=== PATIENT | male | born 1975 | race American Indian/Alaskan Native ===

== ENCOUNTER 2017-09-18 15:58 | Emergency (ER) | payer MEDICARE, MEDICAID ==
[2017-09-18 16:44] LABS: Basophils % (Auto) 0.3 % (0.0-1.8); Hematocrit 49.9 % (35.5-45.6); Hemoglobin 16.8 gm/dl (11.8-15.2); Lymphocytes # (Auto) 1.2 K/mm3 (1.2-5.4); Lymphocytes % (Auto) 6.8 % (13.4-35.0); Mean Corpuscular HGB Conc 34 % (32-34); Mean Corpuscular Hemoglobin 29 pg (28-32); Mean Corpuscular Volume 87 fl (84-94); Monocytes # (Auto) 1.1 K/mm3 (0.0-0.8); Monocytes % (Auto) 5.8 % (0.0-7.3); Platelet Count 168 K/mm3 (140-440); Red Blood Count 5.73 M/mm3 (3.65-5.03); Red Cell Distribution Width 14.8 % (13.2-15.2)
[2017-09-18 17:05] LABS: Calcium 9.8 mg/dL (8.4-10.2)
[2017-09-18] MEDS ORDERED: NACL 0.9% 1000 ML 1,000 ML IV ONE ×3 (19:07→22:27)
[2017-09-18] MEDS ORDERED: NARCAN 0.4 MG/1 ML ONE (19:10)
[2017-09-18] MEDS ORDERED: NARCAN 0.4 MG/1 ML IV PRN (19:11)
--- NOTE | 2017-09-18 20:04 | Emergency Department Report ---
ED Psych HPI - General Chief Complaint: Psych Stated Complaint: MEDICAL CLEARENCE Time Seen by Provider: 09/18/17 18:38 Source: patient Mode of arrival: Ambulatory - History of Present Illness Initial Comments: Mr Keith is a 41 year-old man with hx of seizures and substance dependency who presents for medical clearance. Reports wanting to go inpatient for heroin treatment. last used this morning. Reports not sleeping for days, has been dehydrated. Vomited x 2 today, non-bloody, non-bilious. Normal stools. normal PO. normal urine without pain. No fever. No chest pain. had episode where he went missing from triage, now in room somnolent. denies using here. - Related Data Allergies Allergy/AdvReac Type Severity Reaction Status Date / Time ciprofloxacin [From Cipro] Allergy Unknown Verified 09/18/17 16:04 lidocaine Allergy Rash Verified 09/18/17 16:04 ED Review of Systems ROS: Stated complaint: MEDICAL CLEARENCE Other details as noted in HPI Comment: All other systems reviewed and negative ED Past Medical Hx - Past Medical History Previous Medical History?: Yes Hx Seizures: Yes Hx Kidney Stones: Yes Hx Psychiatric Treatment: Yes (pain pill addiction, heroin abuse, ETOH abuse) Additional medical history: anxiety - Surgical History Past Surgical History?: Yes Additional Surgical History: Left kidney surgery. Left arm surgery with instrumentation - Social History Smoking Status: Current Every Day Smoker Substance Use Type: Alcohol, Heroin, Tranquilizers ED Physical Exam - General Limitations: No Limitations General appearance: alert, in no apparent distress - Head Head exam: Present: atraumatic, normocephalic - Eye Eye exam: Present: normal appearance, PERRL, EOMI - ENT ENT exam: Present: normal exam, mucous membranes moist - Neck Neck exam: Present: normal inspection, full ROM. Absent: tenderness, meningismus - Respiratory Respiratory exam: Present: normal lung sounds bilaterally. Absent: respiratory distress, wheezes, rales - Cardiovascular Cardiovascular Exam: Present: regular rate, normal rhythm. Absent: systolic murmur, diastolic murmur, rubs, gallop - GI/Abdominal GI/Abdominal exam: Present: soft, normal bowel sounds. Absent: distended - Rectal Rectal exam: Present: deferred - Extremities Exam Extremities exam: Present: normal inspection - Back Exam Back exam: Present: normal inspection - Neurological Exam Neurological exam: Present: alert, oriented X3 - Psychiatric Psychiatric exam: Present: normal affect, normal mood - Skin Skin exam: Present: warm, dry, intact, normal color. Absent: rash ED Course Vital Signs 09/18/17 09/18/17 09/18/17 16:04 19:15 19:30 Temperature 99.3 F Pulse Rate 96 H 114 H 99 H Respiratory 18 20 15 Rate Blood Pressure 121/97 131/92 139/98 O2 Sat by Pulse 98 99 97 Oximetry 09/18/17 09/18/17 09/18/17 19:39 19:45 20:00 Temperature Pulse Rate 115 H 99 H Respiratory 16 15 12 Rate Blood Pressure 139/98 128/97 O2 Sat by Pulse 98 97 97 Oximetry 09/18/17 09/18/17 09/18/17 20:15 20:31 20:45 Temperature Pulse Rate 101 H 110 H 106 H Respiratory 15 19 20 Rate Blood Pressure 128/97 138/99 138/99 O2 Sat by Pulse 97 97 99 Oximetry 09/18/17 09/18/17 09/18/17 21:00 21:15 21:30 Temperature Pulse Rate 100 H 103 H 108 H Respiratory 19 9 L 16 Rate Blood Pressure 117/82 117/82 116/79 O2 Sat by Pulse 98 97 97 Oximetry 09/18/17 09/18/17 09/18/17 21:45 22:00 22:15 Temperature Pulse Rate 114 H 107 H 106 H Respiratory 14 17 17 Rate Blood Pressure 116/79 113/72 113/72 O2 Sat by Pulse 95 95 97 Oximetry 09/18/17 09/18/17 09/18/17 22:30 22:45 23:00 Temperature Pulse Rate 100 H 87 Respiratory 16 19 22 Rate Blood Pressure 111/77 111/77 118/81 O2 Sat by Pulse 97 100 100 Oximetry ED Medical Decision Making - Lab Data Result diagrams: 09/18/17 16:18 09/18/17 16:18 Lab Results 09/18/17 09/18/17 09/18/17 Range/Units 16:18 16:18 16:18 WBC (4.5-11.0) K/mm3 RBC (3.65-5.03) M/mm3 Hgb (11.8-15.2) gm/dl Hct (35.5-45.6) % MCV (84-94) fl MCH (28-32) pg MCHC (32-34) % RDW (13.2-15.2) % Plt Count (140-440) K/mm3 Lymph % (Auto) (13.4-35.0) % Dixie % (Auto) (0.0-7.3) % Eos % (Auto) (0.0-4.3) % Baso % (Auto) (0.0-1.8) % Lymph # (1.2-5.4) K/mm3 Dixie # (0.0-0.8) K/mm3 Eos # (0.0-0.4) K/mm3 Baso # (0.0-0.1) K/mm3 Seg Neutrophils % (40.0-70.0) % Seg Neutrophils # (1.8-7.7) K/mm3 Sodium 136 L (137-145) mmol/L Potassium 4.4 (3.6-5.0) mmol/L Chloride 92.7 L (98-107) mmol/L Carbon Dioxide 27 (22-30) mmol/L Anion Gap 21 mmol/L BUN 28 H (9-20) mg/dL Creatinine 1.4 (0.8-1.5) mg/dL Estimated GFR 56 ml/min BUN/Creatinine Ratio 20 % Glucose 129 H (75-100) mg/dL Calcium 9.8 (8.4-10.2) mg/dL Salicylates < 0.3 L (2.8-20.0) mg/dL Acetaminophen < 5.0 L (10.0-30.0) ug/mL Plasma/Serum Alcohol (0-0.07) % 09/18/17 09/18/17 Range/Units 16:18 16:18 WBC 18.2 H (4.5-11.0) K/mm3 RBC 5.73 H (3.65-5.03) M/mm3 Hgb 16.8 H (11.8-15.2) gm/dl Hct 49.9 H (35.5-45.6) % MCV 87 (84-94) fl MCH 29 (28-32) pg MCHC 34 (32-34) % RDW 14.8 (13.2-15.2) % Plt Count 168 (140-440) K/mm3 Lymph % (Auto) 6.8 L (13.4-35.0) % Dixie % (Auto) 5.8 (0.0-7.3) % Eos % (Auto) 0.0 (0.0-4.3) % Baso % (Auto) 0.3 (0.0-1.8) % Lymph # 1.2 (1.2-5.4) K/mm3 Dixie # 1.1 H (0.0-0.8) K/mm3 Eos # 0.0 (0.0-0.4) K/mm3 Baso # 0.0 (0.0-0.1) K/mm3 Seg Neutrophils % 87.1 H (40.0-70.0) % Seg Neutrophils # 15.9 H (1.8-7.7) K/mm3 Sodium (137-145) mmol/L Potassium (3.6-5.0) mmol/L Chloride (98-107) mmol/L Carbon Dioxide (22-30) mmol/L Anion Gap mmol/L BUN (9-20) mg/dL Creatinine (0.8-1.5) mg/dL Estimated GFR ml/min BUN/Creatinine Ratio % Glucose (75-100) mg/dL Calcium (8.4-10.2) mg/dL Salicylates (2.8-20.0) mg/dL Acetaminophen (10.0-30.0) ug/mL Plasma/Serum Alcohol < 0.01 (0-0.07) % - Medical Decision Making Mr Keith is a 41 year-old man with hx of heroin abuse who presents for medical clearance for detox. Somnolent in ED, RR drops to 6 when asleep. given 0.4mg narcan and has remained stable. Labs unremarkable. UDS amphetamine and opiate positive. Has been mildly tachycardic here, suspect amphetamines causing this. given 2L NS. HR now in 90s. Given GI cocktail and H2 crissy for abdominal discomfort, feels better now. Mild dehydration on labs. Given fluids. Normal Cr. Medically cleared to go to rehab. Taking PO, well appearing. DC. Critical care attestation.: If time is entered above; I have spent that time in minutes in the direct care of this critically ill patient, excluding procedure time. ED Disposition Clinical Impression: Medical clearance for psychiatric admission Disposition: [id number]/[id number] PSY HOSP/PSY UNIT Is pt being admited?: No Condition: Stable Instructions: Narcotic Abuse (ED), Methamphetamine Abuse (ED)
--- NOTE | 2017-09-18 20:29 | XRay Report ---
FINAL REPORT PROCEDURE: Chest. TECHNIQUE: Portable AP view. HISTORY: Cough. COMPARISON: No prior studies are available for comparison. FINDINGS: The heart and mediastinum appear normal. The lungs are clear and well expanded. There are no pleural effusions. The soft tissues are unremarkable. There is internal fixation hardware in the left humerus. IMPRESSION: No evidence of acute disease.
[2017-09-18 21:37] LABS: Bacteria,Urine 1+ /HPF (Negative); Bilirubin,Urine NEG (Negative); Blood,Urine SM (Negative); Color,Urine Yellow (Yellow); Hyaline Casts,Urine 1 /LPF; Mucus,Urine FEW /HPF; Urobilinogen,Urine < 2.0 mg/dL (<2.0)
[2017-09-18 21:49] LABS: Benzodiazepines Screen,Urine PRESUMPTIVE NEGATIVE; Cannabinoid Screen,Urine PRESUMPTIVE NEGATIVE; Cocaine Screen,Urine PRESUMPTIVE NEGATIVE; Methadone Screen,Urine PRESUMPTIVE NEGATIVE
[2017-09-18 22:22] LABS: Amphetamine Screen,Urine PRESUMPTIVE POSITIVE; Opiate Screen,Urine PRESUMPTIVE POSITIVE
[2017-09-18] MEDS ORDERED: NACL 0.9% 1000 ML 1,000 ML ONE (22:26)
[2017-09-18] MEDS ORDERED: ALUM-MAG HYDROX-SIMETH 200-200-20MG/5ML PO ONE (23:13)
[2017-09-18] MEDS ORDERED: LIDOCAINE VISCOUS 2% PO ONE (23:13)
[2017-09-18] MEDS ORDERED: PEPCID PO ONE (23:14)
[2017-09-19 01:14] LABS: Basophils % (Auto) 0.4 % (0.0-1.8); Eosinophils % (Auto) 0.2 % (0.0-4.3); Hematocrit 43.1 % (35.5-45.6); Hemoglobin 14.6 gm/dl (11.8-15.2); Lymphocytes # (Auto) 2.1 K/mm3 (1.2-5.4); Lymphocytes % (Auto) 16.8 % (13.4-35.0); Mean Corpuscular HGB Conc 34 % (32-34); Mean Corpuscular Hemoglobin 30 pg (28-32); Mean Corpuscular Volume 87 fl (84-94); Monocytes # (Auto) 0.9 K/mm3 (0.0-0.8); Monocytes % (Auto) 7.3 % (0.0-7.3); Platelet Count 132 K/mm3 (140-440); Red Blood Count 4.93 M/mm3 (3.65-5.03); Red Cell Distribution Width 14.9 % (13.2-15.2)
[2017-09-19 01:27] LABS: BUN/Creatinine Ratio 19; Blood Urea Nitrogen 21 mg/dL (9-20); Calcium 8.2 mg/dL (8.4-10.2); Hemolysis Index 10
[2017-09-19 07:40] VITALS: BP 119/81
== END 2017-09-19 09:18 ==
LOC: ED 15:58
DX: Z04.6 Encounter for general psychiatric examination, requested by authority (principal); F41.9 Anxiety disorder, unspecified; F11.10 Opioid abuse, uncomplicated; F17.200 Nicotine dependence, unspecified, uncomplicated; Z87.442 Personal history of urinary calculi; Z88.1 Allergy status to other antibiotic agents; Z88.8 Allergy status to other drugs, medicaments and biological substances
CPT/HCPCS: 36415; 71045; 80048; 80307; 81001; 85025; 96361; 96374; 99285; G0480; J2310; J7030; 80320